=== PATIENT | male | born 1930 | race Caucasian/White ===

== ENCOUNTER 2019-09-20 19:31 | Inpatient (IN) | payer MEDICARE ==
[~2019-09-20] VITALS: Ht 175.3 cm; Wt 60.4 kg
[2019-09-20 20:11] LABS: BASO % 1 % (0-3); EOS # 0.2 x10^3/uL (0.0-0.7); EOS % 3 % (0-3); HEMATOCRIT 26.7 % (39.0-53.0); HEMOGLOBIN 9.2 g/dL (13.0-17.5); LYMPH # 1.5 x10^3/uL (1.0-4.8); LYMPH % 19 % (24-48); MEAN CORPUSCULAR HEMOGLOBIN 30 pg (25-35); MEAN CORPUSCULAR HGB CONC 34 g/dL (31-37); MEAN CORPUSCULAR VOLUME 88 fL (79-100); MONO # 0.4 x10^3/uL (0.0-1.1); MONO % 6 % (0-9); NEUT # 5.7 x10^3/uL (1.8-7.7); NEUT % 72 % (31-73); PLATELET COUNT 200 x10^3/uL (140-400); RED BLOOD COUNT 3.04 x10^6/uL (4.30-5.70); RED CELL DISTRIBUTION WIDTH 15.4 % (11.5-14.5); WHITE BLOOD COUNT 7.8 x10^3/uL (4.0-11.0)
[2019-09-20 20:20] LABS: CALCIUM 8.6 mg/dL (8.5-10.1); CREATININE 5.9 mg/dL (0.7-1.3); GFR 9.1; POTASSIUM 5.5 mmol/L (3.5-5.1)
[2019-09-20 20:26] LABS: ALBUMIN 4.1 g/dL (3.4-5.0); ALBUMIN/GLOBULIN RATIO 1.5 (1.0-1.7); TOTAL BILIRUBIN 0.3 mg/dL (0.2-1.0); TOTAL PROTEIN 6.9 g/dL (6.4-8.2)
--- NOTE | 2019-09-20 20:42 | PHYS DOC ---
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 Patient states that he had blood work done yesterday and that his PCP Dr. Ballard called him today to come into the ER immediately for admission. Patient was told that his kidney labs were abnormal. Patient states that he has bilateral lower extremity edema for the last 1 month. Patient states that he has had generalized weakness for the last 1 month. Patient denies being an active smoker. Patient denies a history of diabetes, high blood pressure, high cholesterol. Patient denies chest pain, fever, chills, nausea or vomiting. Review of Systems: Review of Systems: Constitutional: Denies fever or chills. [] Eyes: Denies change in visual acuity. [] HENT: Denies nasal congestion or sore throat. [] Respiratory: Denies cough or shortness of breath. [] Cardiovascular: Denies chest pain or edema. [] GI: Denies abdominal pain, nausea, vomiting or diarrhea. [] : Denies dysuria. [] Musculoskeletal: Complains of bilateral lower extremity edema [] Neurologic: Complains of generalized weakness [] Heart Score: Risk Factors: Risk Factors: DM, Current or recent (<one month) smoker, HTN, HLP, family history of CAD, obesity. Risk Scores: Score 0 - 3: 2.5% MACE over next 6 weeks - Discharge Home Score 4 - 6: 20.3% MACE over next 6 weeks - Admit for Clinical Observation Score 7 - 10: 72.7% MACE over next 6 weeks - Early Invasive Strategies Allergies: Allergies: Allergies Coded Allergies Type Severity Reaction Last Updated Verified No Known Drug Allergies 09/20/19 No Physical Exam: PE: Constitutional: Well developed, well nourished, no acute distress, non-toxic appearance. [] HENT: Normocephalic, atraumatic Eyes: EOMI Neck: Normal range of motion, Supple Cardiovascular:Heart rate regular rhythm Lungs & Thorax: Bilateral breath sounds clear to auscultation [] Abdomen: Bowel sounds normal, soft, no tenderness Extremities: No tenderness, ROM intact, bilateral +2 lower extremity edema Neurologic: Alert and oriented X 3 Current Patient Data: Labs: Laboratory Tests Test 09/20/19 19:56 White Blood Count 7.8 x10^3/uL (4.0-11.0) Red Blood Count 3.04 x10^6/uL (4.30-5.70) L Hemoglobin 9.2 g/dL (13.0-17.5) L Hematocrit 26.7 % (39.0-53.0) L Mean Corpuscular Volume 88 fL (79-100) Mean Corpuscular Hemoglobin 30 pg (25-35) Mean Corpuscular Hemoglobin Concent 34 g/dL (31-37) Red Cell Distribution Width 15.4 % (11.5-14.5) H Platelet Count 200 x10^3/uL (140-400) Neutrophils (%) (Auto) 72 % (31-73) Lymphocytes (%) (Auto) 19 % (24-48) L Monocytes (%) (Auto) 6 % (0-9) Eosinophils (%) (Auto) 3 % (0-3) Basophils (%) (Auto) 1 % (0-3) Neutrophils # (Auto) 5.7 x10^3/uL (1.8-7.7) Lymphocytes # (Auto) 1.5 x10^3/uL (1.0-4.8) Monocytes # (Auto) 0.4 x10^3/uL (0.0-1.1) Eosinophils # (Auto) 0.2 x10^3/uL (0.0-0.7) Basophils # (Auto) 0.0 x10^3/uL (0.0-0.2) Sodium Level 142 mmol/L (136-145) Potassium Level 5.5 mmol/L (3.5-5.1) H Chloride Level 107 mmol/L (98-107) Carbon Dioxide Level 23 mmol/L (21-32) Anion Gap 12 (6-14) Blood Urea Nitrogen 79 mg/dL (8-26) H Creatinine 5.9 mg/dL (0.7-1.3) H Estimated GFR (Cockcroft-Gault) 9.1 BUN/Creatinine Ratio 13 (6-20) Glucose Level 125 mg/dL (70-99) H Calcium Level 8.6 mg/dL (8.5-10.1) Total Bilirubin 0.3 mg/dL (0.2-1.0) Aspartate Amino Transferase (AST) 14 U/L (15-37) L Alanine Aminotransferase (ALT) 18 U/L (16-63) Alkaline Phosphatase 59 U/L (46-116) Troponin I Quantitative < 0.017 ng/mL (0.000-0.055) DI-Kqd-C-Type Natriuretic Peptide 7542 pg/mL (0-449) H Total Protein 6.9 g/dL (6.4-8.2) Albumin 4.1 g/dL (3.4-5.0) Albumin/Globulin Ratio 1.5 (1.0-1.7) Laboratory Tests 09/20/19 19:56 Laboratory Tests 09/20/19 19:56 Vital Signs: Vital Signs Date Time Temp Pulse Resp B/P (MAP) Pulse Ox O2 Delivery O2 Flow Rate FiO2 09/20/19 19:42 97.9 16 188/83 (118) 99 Room Air 97.9 EKG: EKG: EKG interpretation: 19: 58 on 09/20/2019 HR: 71 Sinus rhythm Leftward axis Regular intervals nonspecific ST changes Radiology/Procedures: Radiology/Procedures: [] Impression: CXR IMPRESSION: Mild ill-defined right basilar opacities, possibly an infectious/inflammatory process. Course & Med Decision Making: Course & Med Decision Making Pertinent Labs and Imaging studies reviewed. (See chart for details) Order labs, UA, chest x-ray Patient's hemoglobin is 9.2. Patient's creatinine is 5.9. BNP is elevated at 7540. Patient's potassium is 5.5. EKG does not show any acute changes. Chest x-ray does not show any acute disease. IV fluids started in the ED. We will discuss case with Dr. Ballard for admission. Discussed results and plan of care with patient. At 8:55 PM I discussed case with Dr. Ballard who accepts admission. He is aware of chest x-ray but does not want any treatment currently. States that he will follow-up tomorrow. He also wants me to discuss case with nephrology for possible dialysis. Here is that patient be put on D5 normal saline at 100 cc an hour. He states that patient's creatinine in May was 2.6 and he was supposed to follow-up with nephrology but patient never followed up. Also discussed case with nephrology on-call Dr. Rock. Nephrology will see him tomorrow morning. [place] Disclaimer: [place] Disclaimer: This electronic medical record was generated, in whole or in part, using a voice recognition dictation system. Departure Departure Impression: Primary Impression: CHAN (acute kidney injury) Additional Impression: Hyperkalemia Disposition: ADMITTED INPATIENT Admitting Physician: Gilberto Ballard Condition: GUARDED Referrals: GILBERTO BALLARD MD (PCP) Justicifation of Admission Dx: Justifications for Admission: Justification of Admission Dx: Yes CHF: Sev. Electrolyte Abnormal Acute Renal Failure: 3-Fold Rise in Serum Crea GREG BERMUDEZ DO Sep 20, 2019 20:42
[2019-09-20] MEDS ORDERED: AMIT10TA PO (20:44)
[2019-09-20] MEDS ORDERED: IV NORMAL SALINE 1000ML BAG 1,000 ML IV ONE (20:45)
--- NOTE | 2019-09-20 20:48 | RAD ---
CHEST PA LATERAL INDICATION: Reason: cough / Spl. Instructions: / History: . COMPARISON STUDY: None. FINDINGS: Lungs: Normal lung volume. Mild ill-defined right basilar opacities. The tracheobronchial tree and hilar structures are normal. Pleura: No pleural effusion or pneumothorax. Heart and Mediastinum: Cardiomegaly. Tortuous atherosclerotic aorta. Bones and Soft Tissues: Degenerative changes of the spine. IMPRESSION: Mild ill-defined right basilar opacities, possibly an infectious/inflammatory process. Electronically signed by: Nas Suazo MD (09/20/2019 8:45 PM) [facility] HOSPITALFlorinda
[2019-09-20 21:15] LABS: BILIRUBIN,URINE NEGATIVE (NEG); CLARITY,URINE CLEAR; COLOR,URINE YELLOW; NITRITE,URINE NEGATIVE (NEG); PH,URINE 6.5 (<5.0-8.0); PROTEIN,URINE NEGATIVE (NEG-TRACE); UROBILINOGEN,URINE 0.2 mg/dL (0.2 mg/dL)
[2019-09-20 21:19] LABS: SQUAMOUS EPITHELIAL CELL,UR OCC /LPF
[2019-09-20 21:20] LABS: BACTERIA,URINE 0 /HPF (0-FEW); RBC,URINE RARE /HPF (0-2); WBC,URINE OCC /HPF (0-4)
[2019-09-20] MEDS ORDERED: IV DEXTROSE 5% - 0.9 % NACL 1,000 ML IV ONE (21:30)
[2019-09-20 22:30] VITALS: BP 179/65
[2019-09-21 02:31] VITALS: BP 167/70
[2019-09-21] MEDS ORDERED: AMLO10TA4 PO (02:42)
[2019-09-21] MEDS ORDERED: FURO40TA4 PO (02:42)
--- NOTE | 2019-09-21 06:35 | EKG ---
[facility] [address] [place] [address] Test Date: 2019-09-20 Test Time: 19:58:13 Pat Name: QUINN FOSTER Department: Room: 211 1 Gender: M Electrocardiograph Operator: : [id number] Requested By: GREG BERMUDEZ Order Number: [id number] Reading MD: Augustus Sawant MD Measurements Intervals [place] Rate: 71 P: 28 MS: 206 QRS: -14 QRSD: 94 T: 63 QT: 374 QTc: 407 Interpretive Statements SINUS RHYTHM Electronically Signed On 09-27-2019 10:11:24 CDT by Augustus Sawant MD
[2019-09-21 07:00] VITALS: BP 169/83
--- NOTE | 2019-09-21 08:53 | PDOC ---
Provider Note Provider Note dictated, folley NOT placed yet as requested of er doc- may have retention fron amitryptalinel, ordered Justicifation of Admission Dx: Justifications for Admission: Justification of Admission Dx: Yes Acute Renal Failure: Anuria GILBERTO BALLARD MD Sep 21, 2019 08:53
--- NOTE | 2019-09-21 09:15 | HP ---
ADMIT DATE: CHIEF COMPLAINT: Acute renal failure. HISTORY OF PRESENT ILLNESS: This 88-year-old white male known to have some degree of CKD. Three months ago, his GFR was around 25, creatinine 1.2 and renal consult was made, but was never obtained for reasons that are unclear. Recent labs showed his creatinine was 6.0, potassium 5.7 and he was contacted by phone and decided to come to [facility]. Redd catheter was ordered to be placed. This has not been placed yet at this point. The patient is a poor historian at this time. HOME MEDICATIONS: Include furosemide, amitriptyline and amlodipine, none of which are new. ALLERGIES: No known allergies. SOCIAL HISTORY: Unremarkable, single, has a son who lives in the area. FAMILY HISTORY: Unremarkable. REVIEW OF SYSTEMS: No other known complaints. He is not able to really quantitate his urine output or any issues with straining. OBJECTIVE: ENT: He has mild pallor, although his mouth is dry, otherwise unremarkable. NECK: No bruits, masses or nodes. LUNGS: Clear. CARDIOVASCULAR: Regular rate. No tachycardia or irregular beat. ABDOMEN: Benign and nontender. No palpable bladder is felt, but guarding is present in the lower abdomen. EXTREMITIES: He has 3+ pretibial edema bilaterally. Pedal pulses are adequate. NEUROLOGIC: Physiologic and nonfocal. ASSESSMENT: Chronic kidney disease that has progressed to acute renal failure with hyperkalemia. He also is anemic, likely from chronic kidney disease. May have vasomotor nephropathy, but may also have urinary retention, aggravated by amitriptyline. PLAN: Redd catheter, IV fluid rehydration, renal consultation as he likely will require acute hemodialysis unless he has got obstruction and hydronephrosis. GILBERTO BALLARD MD DR: MACARIO/madison JOB#: [id number] / [id number]
[2019-09-21 09:49] LABS: CALCIUM 8.3 mg/dL (8.5-10.1); CREATININE 5.7 mg/dL (0.7-1.3); GFR 9.5; POTASSIUM 4.9 mmol/L (3.5-5.1)
--- NOTE | 2019-09-21 09:51 | PDOC2 ---
CONSULT Date of Consult Date of Consult DATE: 09/21/19 TIME: 09:33 Reason for Consult Reason for Consult: CHAN on CKD Identification/Chief Complaint Chief Complaint "Im feeling better" Source Source: Chart review History of Present Illness Reason for Visit: Poor Historian, information from PCP's note Pt is a 88-year-old CM follows with Dr. Grubbs - he has baseline CKD per PCP's note and baseline Cr of 1.2 3 months ago with eGFR of 25 He was found to have abnormal labs with Cr of 6.0 , K 5.7 and was advised to come to ER . His UOP has been minimal . he doesnt have da silva . He denies any CP, SOB. No N/V/D. Per Home med list he is been on furosemide, amitriptyline and amlodipine, none of which are new per PCP Past Medical History Past Medical History Not mentioned in PCP's Note Unable to obtain from Pt. Based on Med list- HTN, CKD Family History Family History Unremarkable. Social History Social History Unremarkable, single, has a son who lives in the area. Current Problem List Problem List Problems Medical Problems: (1) CHAN (acute kidney injury) Status: Acute (2) Hyperkalemia Status: Acute Current Medications Current Medications Current Medications Sodium Chloride 1,000 ml @ 1,000 mls/hr 1X ONCE IV Last administered on 09/20/19at 20:45; Start 09/20/19 at 20:45; Stop 09/20/19 at 21:44; Status DC Dextrose/Sodium Chloride 1,000 ml @ 100 mls/hr 1X ONCE IV Last administered on 09/21/19at 05:39; Start 09/20/19 at 21:30; Stop 09/21/19 at 07:29; Status DC Amlodipine Besylate (Norvasc) 10 mg DAILY PO ; Start 09/21/19 at 09:00 Dextrose/Sodium Chloride 1,000 ml @ 100 mls/hr Q10H IV ; Start 09/21/19 at 08:45 Active Scripts Active Reported Furosemide 40 Mg Tablet 40 Mg PO DAILY Norvasc (Amlodipine Besylate) 10 Mg Tablet 10 Mg PO DAILY Amitriptyline Hcl 10 Mg Tablet 50 Mg PO HS Allergies Allergies: Coded Allergies: No Known Drug Allergies (Unverified , 09/20/19) ROS Review of System Per HPI, Rosa Historian Physical Exam Physical Exam GENERAL- NAD HEEN OM dry NECK: supple LUNGS: Clear, Non labored breathing CARDIOVASCULAR: Regular rate. No tachycardia or irregular beat. ABDOMEN: nontender. EXTREMITIES: 2-+ LE edema bilaterally (Unknown if acute or chronic) NEUROLOGIC: Grossly normal No da silva DERM No Rash Vital Signs Vital Signs Date Time Temp Pulse Resp B/P (MAP) Pulse Ox O2 Delivery O2 Flow Rate FiO2 09/21/19 07:00 97.7 69 16 169/83 (111) 97 Room Air 97.7 Assessment & Plan CHAN - Dehydration vs Post obstructive No imaging at presentation, will get Renal US , UA unremarkable Labs ordered , pending . clinically no Uremic symptoms, decision for HOME PERFORMANCE CONSULTANT will be based on Labs and clinical status Recommend Da Silva , Supportive care, Strict I/O, avoid Nephrotoxins' HyperKalemia- ordered FU lab this am CKD stage 4 - per PCP's note Cr 1.25 with eGFR of 25 approx 3 months ago Anemia- baseline unknown to me HTN - On amlodipine and Lasix per home med list ? BPH - was on Flomax in the past Discussed with RN Labs Labs Laboratory Tests Test 09/20/19 19:56 09/20/19 21:09 White Blood Count 7.8 x10^3/uL (4.0-11.0) Red Blood Count 3.04 x10^6/uL (4.30-5.70) Hemoglobin 9.2 g/dL (13.0-17.5) Hematocrit 26.7 % (39.0-53.0) Mean Corpuscular Volume 88 fL (79-100) Mean Corpuscular Hemoglobin 30 pg (25-35) Mean Corpuscular Hemoglobin Concent 34 g/dL (31-37) Red Cell Distribution Width 15.4 % (11.5-14.5) Platelet Count 200 x10^3/uL (140-400) Neutrophils (%) (Auto) 72 % (31-73) Lymphocytes (%) (Auto) 19 % (24-48) Monocytes (%) (Auto) 6 % (0-9) Eosinophils (%) (Auto) 3 % (0-3) Basophils (%) (Auto) 1 % (0-3) Neutrophils # (Auto) 5.7 x10^3/uL (1.8-7.7) Lymphocytes # (Auto) 1.5 x10^3/uL (1.0-4.8) Monocytes # (Auto) 0.4 x10^3/uL (0.0-1.1) Eosinophils # (Auto) 0.2 x10^3/uL (0.0-0.7) Basophils # (Auto) 0.0 x10^3/uL (0.0-0.2) Sodium Level 142 mmol/L (136-145) Potassium Level 5.5 mmol/L (3.5-5.1) Chloride Level 107 mmol/L (98-107) Carbon Dioxide Level 23 mmol/L (21-32) Anion Gap 12 (6-14) Blood Urea Nitrogen 79 mg/dL (8-26) Creatinine 5.9 mg/dL (0.7-1.3) Estimated GFR (Cockcroft-Gault) 9.1 BUN/Creatinine Ratio 13 (6-20) Glucose Level 125 mg/dL (70-99) Calcium Level 8.6 mg/dL (8.5-10.1) Total Bilirubin 0.3 mg/dL (0.2-1.0) Aspartate Amino Transf (AST/SGOT) 14 U/L (15-37) Alanine Aminotransferase (ALT/SGPT) 18 U/L (16-63) Alkaline Phosphatase 59 U/L (46-116) Troponin I Quantitative < 0.017 ng/mL (0.000-0.055) ZD-Mvw-F-Type Natriuretic Peptide 7542 pg/mL (0-449) Total Protein 6.9 g/dL (6.4-8.2) Albumin 4.1 g/dL (3.4-5.0) Albumin/Globulin Ratio 1.5 (1.0-1.7) Urine Collection Type Unknown Urine Color Yellow Urine Clarity Clear Urine pH 6.5 (<5.0-8.0) Urine Specific [place] 1.010 (1.000-1.030) Urine Protein Negative mg/dL (NEG-TRACE) Urine Glucose (UA) Negative mg/dL (NEG) Urine Ketones (Stick) Negative mg/dL (NEG) Urine Blood Negative (NEG) Urine Nitrite Negative (NEG) Urine Bilirubin Negative (NEG) Urine Urobilinogen Dipstick 0.2 mg/dL (0.2 mg/dL) Urine Leukocyte Esterase Negative (NEG) Urine RBC Rare /HPF (0-2) Urine WBC Occ /HPF (0-4) Urine Squamous Epithelial Cells Occ /LPF Urine Bacteria 0 /HPF (0-FEW) Urine Mucus Slight /LPF Laboratory Tests Test 09/20/19 19:56 09/20/19 21:09 White Blood Count 7.8 x10^3/uL (4.0-11.0) Red Blood Count 3.04 x10^6/uL (4.30-5.70) Hemoglobin 9.2 g/dL (13.0-17.5) Hematocrit 26.7 % (39.0-53.0) Mean Corpuscular Volume 88 fL (79-100) Mean Corpuscular Hemoglobin 30 pg (25-35) Mean Corpuscular Hemoglobin Concent 34 g/dL (31-37) Red Cell Distribution Width 15.4 % (11.5-14.5) Platelet Count 200 x10^3/uL (140-400) Neutrophils (%) (Auto) 72 % (31-73) Lymphocytes (%) (Auto) 19 % (24-48) Monocytes (%) (Auto) 6 % (0-9) Eosinophils (%) (Auto) 3 % (0-3) Basophils (%) (Auto) 1 % (0-3) Neutrophils # (Auto) 5.7 x10^3/uL (1.8-7.7) Lymphocytes # (Auto) 1.5 x10^3/uL (1.0-4.8) Monocytes # (Auto) 0.4 x10^3/uL (0.0-1.1) Eosinophils # (Auto) 0.2 x10^3/uL (0.0-0.7) Basophils # (Auto) 0.0 x10^3/uL (0.0-0.2) Sodium Level 142 mmol/L (136-145) Potassium Level 5.5 mmol/L (3.5-5.1) Chloride Level 107 mmol/L (98-107) Carbon Dioxide Level 23 mmol/L (21-32) Anion Gap 12 (6-14) Blood Urea Nitrogen 79 mg/dL (8-26) Creatinine 5.9 mg/dL (0.7-1.3) Estimated GFR (Cockcroft-Gault) 9.1 BUN/Creatinine Ratio 13 (6-20) Glucose Level 125 mg/dL (70-99) Calcium Level 8.6 mg/dL (8.5-10.1) Total Bilirubin 0.3 mg/dL (0.2-1.0) Aspartate Amino Transf (AST/SGOT) 14 U/L (15-37) Alanine Aminotransferase (ALT/SGPT) 18 U/L (16-63) Alkaline Phosphatase 59 U/L (46-116) Troponin I Quantitative < 0.017 ng/mL (0.000-0.055) IH-Xmt-L-Type Natriuretic Peptide 7542 pg/mL (0-449) Total Protein 6.9 g/dL (6.4-8.2) Albumin 4.1 g/dL (3.4-5.0) Albumin/Globulin Ratio 1.5 (1.0-1.7) Urine Collection Type Unknown Urine Color Yellow Urine Clarity Clear Urine pH 6.5 (<5.0-8.0) Urine Specific [place] 1.010 (1.000-1.030) Urine Protein Negative mg/dL (NEG-TRACE) Urine Glucose (UA) Negative mg/dL (NEG) Urine Ketones (Stick) Negative mg/dL (NEG) Urine Blood Negative (NEG) Urine Nitrite Negative (NEG) Urine Bilirubin Negative (NEG) Urine Urobilinogen Dipstick 0.2 mg/dL (0.2 mg/dL) Urine Leukocyte Esterase Negative (NEG) Urine RBC Rare /HPF (0-2) Urine WBC Occ /HPF (0-4) Urine Squamous Epithelial Cells Occ /LPF Urine Bacteria 0 /HPF (0-FEW) Urine Mucus Slight /LPF Review All relevant outside records, renal labs, imaging studies, telemetry/EKG's were reviewed. Images Images Mild ill-defined right basilar opacities, possibly an infectious/inflammatory process. GEORGIE MELGOZA MD Sep 21, 2019 09:51
[2019-09-21 09:52] LABS: ALBUMIN 3.7 g/dL (3.4-5.0); PHOSPHORUS 4.7 mg/dL (2.6-4.7)
[2019-09-21 11:00] VITALS: BP 155/77
[2019-09-21] MEDS: amLODIPine BESYLATE 10 MG TABLET PO SCH (11:48)
[2019-09-21] MEDS: IV DEXTROSE 5 %-0.45 % NACL 1,000 ML IV SCH ×2 (11:48→22:04)
--- NOTE | 2019-09-21 13:00 | RAD ---
RENAL COMPLETE BILATERAL History: Reason: CHAN on CKD / Spl. Instructions: / History: Comparison: None. Procedure: Transabdominal ultrasound images are obtained of the kidneys and bladder. Findings: Multicystic kidneys bilaterally. Largest cyst on the right measures 9.2 x 9.1 x 8.6 cm and largest on the left measures 9.5 x 8.0 x 8.3 cm. No definite hydronephrosis although evaluation is degraded by large cysts. Severely distended urinary bladder. Urinary bladder: No urinary bladder wall thickening. The IVC is normal caliber. The visualized abdominal aorta is normal caliber. IMPRESSION: 1. Severely distended urinary bladder. 2. Multiple large cysts within the bilateral kidneys degrading evaluation. Electronically signed by: Michael Duffy DO (09/21/2019 12:57 PM) [facility]ENTERPORSCHE
[2019-09-21 14:39] VITALS: BP 147/77
[2019-09-21 23:45] VITALS: BP 147/72
[2019-09-22 03:40] VITALS: BP 149/75
[2019-09-22] MEDS ORDERED: ACETAMINOPHEN 325 MG TABLET. PO PRN (05:00)
[2019-09-22] MEDS: IV DEXTROSE 5 %-0.45 % NACL 1,000 ML IV SCH ×2 (05:13→15:16)
[2019-09-22 05:51] LABS: CALCIUM 8.2 mg/dL (8.5-10.1); CREATININE 5.5 mg/dL (0.7-1.3); GFR 9.9; POTASSIUM 4.4 mmol/L (3.5-5.1)
[2019-09-22 07:00] VITALS: BP 154/71
[2019-09-22] MEDS: amLODIPine BESYLATE 10 MG TABLET PO SCH (08:04)
--- NOTE | 2019-09-22 09:06 | PDOC ---
Provider Note Provider Note bp ok, had > 3000 ml in bladder after da silva placed- bmp same so far, had no hydro on renal sono- re murmur and edema will do echo, continue hydration as bladder recovers- was on amitryptaline x years as likely culprit re retension- sleeping now, K+ better , follow daily Justicifation of Admission Dx: Justifications for Admission: Justification of Admission Dx: Yes Acute Renal Failure: Anuria GILBERTO BALLARD MD Sep 22, 2019 09:06
[2019-09-22 10:24] VITALS: BP 134/56
--- NOTE | 2019-09-22 11:45 | PDOC ---
Renal-Progress Notes Subjective Notes Notes NO NEW COMPLAINTS History of Present Illness Hx of present illness STABLE Vitals Vitals Vital Signs Date Time Temp Pulse Resp B/P (MAP) Pulse Ox O2 Delivery O2 Flow Rate FiO2 09/22/19 10:24 98.2 60 16 134/56 (82) 97 Room Air 98.2 Weight Weight [ ] I.O. Intake and Output Intake and Output 09/22/19 07:00 Intake Total 1820 ml Output Total 7200 ml Balance -5380 ml Intake Oral 620 ml IV Total 1200 ml Output Urine Total 7200 ml Stool Total 0 ml # Bowel Movements 1 Labs Labs Laboratory Tests Test 09/22/19 05:15 Sodium Level 145 mmol/L (136-145) Potassium Level 4.4 mmol/L (3.5-5.1) Chloride Level 110 mmol/L (98-107) Carbon Dioxide Level 24 mmol/L (21-32) Anion Gap 11 (6-14) Blood Urea Nitrogen 70 mg/dL (8-26) Creatinine 5.5 mg/dL (0.7-1.3) Estimated GFR (Cockcroft-Gault) 9.9 Glucose Level 110 mg/dL (70-99) Calcium Level 8.2 mg/dL (8.5-10.1) Review of Systems Constitutional: yes: alert Ears/Nose/Throat: Yes: no symptom reported Eyes: Yes: no symptom reported Pulmonary: Yes no symptom reported Cardiovascular: Yes no symptom reported Gastrointestional: Yes: no symptom reported Genitourinary: Yes: no symptom reported Musculoskeletal: Yes: no symptom reported Skin: Yes no symptom reported Psychiatric/Neurological: Yes: no symptom reported Endocrine: Yes: no symptom reported Physical Exam General Appearance: no apparent distress Skin: warm Respiratory: bilateral CTA Heart: S1S2 Abdomen: soft, bowel sounds present Genitourinary: bladder flat Extremities: pulses present Neurology: alert, oriented Assessment Assessment IMP [id number] DOWN TO 5.5 URINARY RETENTION PROB BPH POSSIBLE CKD-STAGE 3 TO 4 WITH CR OF 1.25 HYPERKALEMIA RESOLVED HTN HX ANEMIA PLAN HYDRATE MAINTAIN DAWN CONSIDER FLOMAX WILL FOLLOW JENNY WAGONER MD Sep 22, 2019 11:45
[2019-09-22 14:53] VITALS: BP 164/90
[2019-09-22 19:52] VITALS: BP 152/62
[2019-09-22] MEDS: TAMSULOSIN 0.4 MG CAP.ER.24H. PO SCH (20:01)
[2019-09-22 23:20] VITALS: BP 149/72
[2019-09-23] MEDS: IV DEXTROSE 5 %-0.45 % NACL 1,000 ML IV SCH ×3 (01:39→21:23)
[2019-09-23 03:20] VITALS: BP 125/54
[2019-09-23 04:34] LABS: CALCIUM 6.9 mg/dL (8.5-10.1); CREATININE 4.3 mg/dL (0.7-1.3); GFR 13.1; POTASSIUM 3.8 mmol/L (3.5-5.1)
[2019-09-23 07:00] VITALS: BP 130/67
[2019-09-23] MEDS: amLODIPine BESYLATE 10 MG TABLET PO SCH (08:22)
--- NOTE | 2019-09-23 09:31 | PDOC ---
Provider Note Provider Note vss, good output- feels ok- creat down to 4.5 , glucose 386? but no hx of dm- will continue hydration re arf, da silva, and do a1c- echo pending, will dc monitor- note edema is gone Justicifation of Admission Dx: Justifications for Admission: Justification of Admission Dx: Yes Acute Renal Failure: Anuria GILBERTO BALLARD MD Sep 23, 2019 09:31
[2019-09-23 11:00] VITALS: BP 133/56
--- NOTE | 2019-09-23 12:05 | PDOC ---
Renal-Progress Notes Subjective Notes Notes FEELING BETTER History of Present Illness Hx of present illness STABLE Vitals Vitals Vital Signs Date Time Temp Pulse Resp B/P (MAP) Pulse Ox O2 Delivery O2 Flow Rate FiO2 09/23/19 11:00 98.1 60 16 133/56 (81) 97 Room Air 98.1 Weight Weight [ ] I.O. Intake and Output Intake and Output 09/23/19 07:00 Intake Total 1758 ml Output Total 4800 ml Balance -3042 ml Intake Oral 758 ml IV Total 1000 ml Output Urine Total 4800 ml Labs Labs Laboratory Tests Test 09/23/19 03:55 Sodium Level 139 mmol/L (136-145) Potassium Level 3.8 mmol/L (3.5-5.1) Chloride Level 105 mmol/L (98-107) Carbon Dioxide Level 22 mmol/L (21-32) Anion Gap 12 (6-14) Blood Urea Nitrogen 59 mg/dL (8-26) Creatinine 4.3 mg/dL (0.7-1.3) Estimated GFR (Cockcroft-Gault) 13.1 Glucose Level 386 mg/dL (70-99) Calcium Level 6.9 mg/dL (8.5-10.1) Review of Systems Constitutional: yes: alert Ears/Nose/Throat: Yes: no symptom reported Eyes: Yes: no symptom reported Pulmonary: Yes no symptom reported Cardiovascular: Yes no symptom reported Gastrointestional: Yes: no symptom reported Genitourinary: Yes: no symptom reported Musculoskeletal: Yes: no symptom reported Skin: Yes no symptom reported Psychiatric/Neurological: Yes: no symptom reported Endocrine: Yes: no symptom reported Physical Exam General Appearance: no apparent distress Skin: warm Respiratory: bilateral CTA Heart: S1S2 Abdomen: soft, bowel sounds present Genitourinary: bladder flat Extremities: pulses present Neurology: alert, oriented Assessment Assessment IMP [id number] DOWN TO 4.3 URINARY RETENTION PROB BPH POSSIBLE CKD-STAGE 3 TO 4 WITH CR OF 1.25 HYPERKALEMIA RESOLVED HTN HX ANEMIA PLAN HYDRATE MAINTAIN DAWN FLOMAX WILL FOLLOW JENNY WAGONER MD Sep 23, 2019 12:05
[2019-09-23 15:00] VITALS: BP 149/59
[2019-09-23 19:00] VITALS: BP 144/69
[2019-09-23] MEDS: TAMSULOSIN 0.4 MG CAP.ER.24H. PO SCH (21:21)
[2019-09-23 23:00] VITALS: BP 156/80
[2019-09-23] MEDS ORDERED: CALCIUM CARBONATE 500 MG TAB.CHEW PO PRN (23:00)
[2019-09-24 03:00] VITALS: BP 132/70
[2019-09-24 05:57] LABS: CALCIUM 7.5 mg/dL (8.5-10.1); CREATININE 3.7 mg/dL (0.7-1.3); GFR 15.6; POTASSIUM 3.7 mmol/L (3.5-5.1)
[2019-09-24 07:05] VITALS: BP 138/58
[2019-09-24] MEDS: amLODIPine BESYLATE 10 MG TABLET PO SCH (08:17)
[2019-09-24] MEDS: IV DEXTROSE 5 %-0.45 % NACL 1,000 ML IV SCH ×2 (08:20→23:52)
--- NOTE | 2019-09-24 08:27 | PDOC ---
Provider Note Provider Note vss, no temp, creat down to 3.7- will reduce iv rate, repeat hb re anemia, consider voiding trial b4 dc as no urology readily available- continues to require hospital care Justicifation of Admission Dx: Justifications for Admission: Justification of Admission Dx: Yes Acute Renal Failure: Anuria GILBERTO BALLARD MD Sep 24, 2019 08:27
[2019-09-24 08:33] LABS: HEMATOCRIT 27.3 % (39.0-53.0); HEMOGLOBIN 9.1 g/dL (13.0-17.5); RED BLOOD COUNT 3.12 x10^6/uL (4.30-5.70); RED CELL DISTRIBUTION WIDTH 14.8 % (11.5-14.5); WHITE BLOOD COUNT 13.6 x10^3/uL (4.0-11.0)
--- NOTE | 2019-09-24 09:34 | CARD ---
MR#: [id number] Date of Study: 09/24/2019 Ordering Physician: GILBERTO BALLARD, Referring Physician: GILBERTO BALLARD Tech: Makenzie Mcpherson RDCS APPROVED REPORT EXAM: Two-dimensional and M-mode echocardiogram with Doppler and color Doppler. Other Information Quality : Good INDICATION Peripheral Edema Murmur 2D DIMENSIONS RVDd2.8 (2.9-3.5cm)Left Atrium(2D)3.5 (1.6-4.0cm) IVSd1.7 (0.7-1.1cm)Aortic Root(2D)2.6 (2.0-3.7cm) LVDd4.9 (3.9-5.9cm)LVOT Diameter2.1 (1.8-2.4cm) PWd1.4 (0.7-1.1cm)LVDs3.0 (2.5-4.0cm) FS (%) 30.0 %SV79.9 ml LVEF(%)60.0 (>50%) Aortic Valve AoV Peak Kirill.245.9cm/sAoV VTI39.7cm AO Peak GR.24.2mmHgLVOT Peak Kirill.124.1cm/s AO Mean GR.12mmHgAVA (VMAX)1.81cm2 MIGEL (VTI)2.54gy7MS P 1/2 Btad202md Mitral Valve MV E Zvfqpavo28.7cm/sMV DECEL RYAT904io MV A Kfkedezk94.7cm/sE/A Ratio0.6 Tricuspid Valve TR P. Kuekgxra168si/sRAP WBATRZCP3whCw TR Peak Gr.78xsJjSDIF54ewYt Pulmonary Vein S1 Nogiqnba14.9cm/sD2 Kubiudas36.5cm/s LEFT VENTRICLE The left ventricle is normal size. There is mild to moderate concentric left ventricular hypertrophy. The left ventricular systolic function is normal. The Ejection Fraction is 60-65%. There is normal L V segmental wall motion. Transmitral Doppler flow pattern is Grade I-abnormal relaxation pattern. RIGHT VENTRICLE The right ventricle is normal size. The right ventricular systolic function is normal. ATRIA The left atrium size is normal. The right atrium size is normal. Prominent eustacian valve visualized . The interatrial septum is intact with no evidence for an atrial septal defect or patent foramen ova le as noted on 2-D or Doppler imaging. AORTIC VALVE The aortic valve is calcified but opens well. Doppler and Color Flow revealed mild aortic regurgitati on. There is no significant aortic valvular stenosis. MITRAL VALVE The mitral valve is normal in structure and function. There is no evidence of mitral valve prolapse. There is no mitral valve stenosis. Doppler and Color-flow revealed mild mitral regurgitation. TRICUSPID VALVE The tricuspid valve is normal in structure and function. Doppler and Color Flow revealed trace tricus pid regurgitation. There is mild pulmonary hypertension. The PA pressure was estimated at 37 mmHg. Th ere is no tricuspid valve stenosis. PULMONIC VALVE The pulmonary valve is normal in structure and function. Doppler and Color Flow revealed mild pulmoni c valvular regurgitation. There is no pulmonic valvular stenosis. GREAT VESSELS The aortic root is normal in size. 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 The IVC is no rmal in size and collapses >50% with inspiration. PERICARDIAL EFFUSION There is no evidence of significant pericardial effusion. Critical Notification Critical Value: No <Conclusion> The left ventricular systolic function is normal. The Ejection Fraction is 60-65%. There is normal LV segmental wall motion. Transmitral Doppler flow pattern is Grade I-abnormal relaxation pattern. Mild aortic regurgitation. Mild mitral regurgitation. Trace tricuspid regurgitation. There is mild pulmonary hypertension. The PA pressure was estimated at 37 mmHg. There is no evidence of significant pericardial effusion. Signed by : Gera Hassan, Electronically Approved : 09/24/2019 09:33:57
[2019-09-24 10:32] VITALS: BP 121/52
--- NOTE | 2019-09-24 11:27 | PDOC ---
Renal-Progress Notes Subjective Notes Notes NO NEW COMPLAINTS History of Present Illness Hx of present illness STABLE Vitals Vitals Vital Signs Date Time Temp Pulse Resp B/P (MAP) Pulse Ox O2 Delivery O2 Flow Rate FiO2 09/24/19 10:32 98.5 55 17 121/52 (75) 96 Room Air 98.5 Weight Weight [ ] I.O. Intake and Output Intake and Output 09/24/19 07:00 Intake Total 380 ml Output Total 5175 ml Balance -4795 ml Intake Oral 380 ml Output Urine Total 5175 ml Labs Labs Laboratory Tests Test 09/24/19 05:30 White Blood Count 13.6 x10^3/uL (4.0-11.0) Red Blood Count 3.12 x10^6/uL (4.30-5.70) Hemoglobin 9.1 g/dL (13.0-17.5) Hematocrit 27.3 % (39.0-53.0) Mean Corpuscular Volume 88 fL (79-100) Mean Corpuscular Hemoglobin 29 pg (25-35) Mean Corpuscular Hemoglobin Concent 33 g/dL (31-37) Red Cell Distribution Width 14.8 % (11.5-14.5) Platelet Count 188 x10^3/uL (140-400) Sodium Level 143 mmol/L (136-145) Potassium Level 3.7 mmol/L (3.5-5.1) Chloride Level 108 mmol/L (98-107) Carbon Dioxide Level 21 mmol/L (21-32) Anion Gap 14 (6-14) Blood Urea Nitrogen 51 mg/dL (8-26) Creatinine 3.7 mg/dL (0.7-1.3) Estimated GFR (Cockcroft-Gault) 15.6 Glucose Level 118 mg/dL (70-99) Calcium Level 7.5 mg/dL (8.5-10.1) Review of Systems Constitutional: yes: alert Ears/Nose/Throat: Yes: no symptom reported Eyes: Yes: no symptom reported Pulmonary: Yes no symptom reported Cardiovascular: Yes no symptom reported Gastrointestional: Yes: no symptom reported Genitourinary: Yes: no symptom reported Musculoskeletal: Yes: no symptom reported Skin: Yes no symptom reported Psychiatric/Neurological: Yes: no symptom reported Endocrine: Yes: no symptom reported Physical Exam General Appearance: no apparent distress Skin: warm Respiratory: bilateral CTA Heart: S1S2 Abdomen: soft, bowel sounds present Genitourinary: bladder flat Extremities: pulses present Neurology: alert, oriented Assessment Assessment IMP [id number] DOWN TO 3.7 URINARY RETENTION 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
[2019-09-24 15:00] VITALS: BP 140/79
[2019-09-24 19:00] VITALS: BP 108/56
[2019-09-24] MEDS: TAMSULOSIN 0.4 MG CAP.ER.24H. PO SCH (21:23)
[2019-09-24 23:00] VITALS: BP 155/65
[2019-09-25] VITALS (7 sets, daily range): BP systolic 111–155; BP diastolic 50–72
[2019-09-25 00:07] LABS: HEMOGLOBIN A1C 5.7 % (4.8-5.6)
[2019-09-25] MEDS: amLODIPine BESYLATE 10 MG TABLET PO SCH (08:45)
--- NOTE | 2019-09-25 08:50 | PDOC ---
Provider Note Provider Note vss, good output,faailed voiding trial despite flomax so will need da silva at home until able to see urology and hope for bladder recovery over more time, off amitryptaline- cont iv fluid and renal folllow, may need snf Justicifation of Admission Dx: Justifications for Admission: Justification of Admission Dx: Yes Acute Renal Failure: Anuria GILBERTO BALLARD MD Sep 25, 2019 08:50
--- NOTE | 2019-09-25 11:39 | PDOC ---
Renal-Progress Notes Subjective Notes Notes NONE History of Present Illness Hx of present illness STABLE Vitals Vitals Vital Signs Date Time Temp Pulse Resp B/P (MAP) Pulse Ox O2 Delivery O2 Flow Rate FiO2 09/25/19 10:25 98.4 62 16 125/50 (75) 97 Room Air 98.4 Weight Weight [ ] I.O. Intake and Output Intake and Output 09/25/19 07:00 Intake Total 1760 ml Output Total 1600 ml Balance 160 ml Intake Oral 320 ml IV Total 720 ml Other 720 ml Output Urine Total 1600 ml # Voids 1 # Bowel Movements 2 Review of Systems Constitutional: yes: alert Ears/Nose/Throat: Yes: no symptom reported Eyes: Yes: no symptom reported Pulmonary: Yes no symptom reported Cardiovascular: Yes no symptom reported Gastrointestional: Yes: no symptom reported Genitourinary: Yes: no symptom reported Musculoskeletal: Yes: no symptom reported Skin: Yes no symptom reported Psychiatric/Neurological: Yes: no symptom reported Endocrine: Yes: no symptom reported Physical Exam General Appearance: no apparent distress Skin: warm Respiratory: bilateral CTA Heart: S1S2 Abdomen: soft, bowel sounds present Genitourinary: bladder flat Extremities: pulses present Neurology: alert, oriented Assessment Assessment IMP [id number] DOWN TO 3.7 URINARY RETENTION PROB BPH 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
[2019-09-25] MEDS: IV DEXTROSE 5 %-0.45 % NACL 1,000 ML IV SCH (15:29)
[2019-09-25] MEDS: TAMSULOSIN 0.4 MG CAP.ER.24H. PO SCH (21:32)
[2019-09-26 03:00] VITALS: BP 113/60
[2019-09-26 05:24] LABS: CALCIUM 7.7 mg/dL (8.5-10.1); CREATININE 3.4 mg/dL (0.7-1.3); GFR 17.2; POTASSIUM 3.6 mmol/L (3.5-5.1)
[2019-09-26 07:00] VITALS: BP 126/74
--- NOTE | 2019-09-26 08:07 | PDOC ---
Provider Note Provider Note bp lower, still good output- creat slowly down, now 3.4- cont slow iv fluid, reduce amlo., placement likely Justicifation of Admission Dx: Justifications for Admission: Justification of Admission Dx: Yes Acute Renal Failure: Anuria GILBERTO BALLARD MD Sep 26, 2019 08:07
[2019-09-26] MEDS: amLODIPine BESYLATE 10 MG TABLET PO SCH (09:22)
[2019-09-26] MEDS: IV DEXTROSE 5 %-0.45 % NACL 1,000 ML IV SCH (09:23)
[2019-09-26 11:00] VITALS: BP 135/62
--- NOTE | 2019-09-26 11:53 | PDOC ---
Renal-Progress Notes Subjective Notes Notes NO NEW COMPLAINTS History of Present Illness Hx of present illness STABLE Vitals Vitals Vital Signs Date Time Temp Pulse Resp B/P (MAP) Pulse Ox O2 Delivery O2 Flow Rate FiO2 09/26/19 11:00 97.8 57 17 135/62 (86) 98 Room Air 97.8 Weight Weight [ ] I.O. Intake and Output Intake and Output 09/26/19 07:00 Intake Total 3110 ml Output Total 3100 ml Balance 10 ml Intake Oral 1670 ml IV Total 720 ml Other 720 ml Output Urine Total 3100 ml Labs Labs Laboratory Tests Test 09/26/19 04:00 Sodium Level 142 mmol/L (136-145) Potassium Level 3.6 mmol/L (3.5-5.1) Chloride Level 107 mmol/L (98-107) Carbon Dioxide Level 21 mmol/L (21-32) Anion Gap 14 (6-14) Blood Urea Nitrogen 51 mg/dL (8-26) Creatinine 3.4 mg/dL (0.7-1.3) Estimated GFR (Cockcroft-Gault) 17.2 Glucose Level 112 mg/dL (70-99) Calcium Level 7.7 mg/dL (8.5-10.1) Review of Systems Constitutional: yes: alert Ears/Nose/Throat: Yes: no symptom reported Eyes: Yes: no symptom reported Pulmonary: Yes no symptom reported Cardiovascular: Yes no symptom reported Gastrointestional: Yes: no symptom reported Genitourinary: Yes: no symptom reported Musculoskeletal: Yes: no symptom reported Skin: Yes no symptom reported Psychiatric/Neurological: Yes: no symptom reported Endocrine: Yes: no symptom reported Physical Exam General Appearance: no apparent distress Skin: warm Respiratory: bilateral CTA Heart: S1S2 Abdomen: soft, bowel sounds present Genitourinary: bladder flat Extremities: pulses present Neurology: alert, oriented Assessment Assessment IMP [id number] DOWN TO 3.4 URINARY RETENTION PROB BPH 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
[2019-09-26 15:00] VITALS: BP 109/69
[2019-09-26 19:11] VITALS: BP 131/57
[2019-09-26] MEDS: TAMSULOSIN 0.4 MG CAP.ER.24H. PO SCH (20:43)
[2019-09-26 23:46] VITALS: BP 132/58
[2019-09-27] MEDS: IV DEXTROSE 5 %-0.45 % NACL 1,000 ML IV SCH (01:06)
[2019-09-27 02:31] VITALS: BP 128/66
[2019-09-27 05:43] LABS: CALCIUM 7.5 mg/dL (8.5-10.1); CREATININE 3.1 mg/dL (0.7-1.3); GFR 19.2; POTASSIUM 3.8 mmol/L (3.5-5.1)
[2019-09-27 07:54] VITALS: BP 132/56
--- NOTE | 2019-09-27 08:15 | PDOC ---
Provider Note Provider Note slow but steady renal recovery, no temp , bp better on less amlo- will cont iv fluid until dc to snf, any time ok, da silva stays in for now- final gfr pending, was gfr 50 in 06/07 Justicifation of Admission Dx: Justifications for Admission: Justification of Admission Dx: Yes Acute Renal Failure: Anuria GILBERTO BALLARD MD Sep 27, 2019 08:15
--- NOTE | 2019-09-27 08:17 | SNU/HH DC ---
DISCHARGE ORDERS DISCHARGE INFORMATION: FINAL DIAGNOSIS Problems Medical Problems: (1) CHAN (acute kidney injury) Status: Acute (2) Hyperkalemia Status: Acute CONDITION ON DISCHARGE: Stable CODE STATUS: Code Status: Full [facility]ENIOR LIVING: SNF STAY <30 DAYS: Yes POST DISCHARGE ORDERS: ACTIVITY ORDERS: No restrictions DIET AFTER DISCHARGE: Regular DISCHARGE MEDICATIONS: Home Meds Reported Medications Furosemide (FUROSEMIDE) 40 Mg Tablet, 40 MG PO DAILY for chf, TAB 09/21/19 Amlodipine Besylate (NORVASC) 10 Mg Tablet, 10 MG PO DAILY for htn, TAB 09/21/19 Amitriptyline Hcl (AMITRIPTYLINE HCL) 10 Mg Tablet, 50 MG PO HS for antidepressant , TAB 09/20/19 GILBERTO BALLARD MD Sep 27, 2019 08:17
[2019-09-27] MEDS: amLODIPine BESYLATE 10 MG TABLET PO SCH (08:23)
[2019-09-27 11:03] VITALS: BP 113/62
--- NOTE | 2019-09-27 11:05 | PDOC ---
Renal-Progress Notes Subjective Notes Notes NO NEW COMPLAINTS History of Present Illness Hx of present illness STABLE Vitals Vitals Vital Signs Date Time Temp Pulse Resp B/P (MAP) Pulse Ox O2 Delivery O2 Flow Rate FiO2 09/27/19 11:03 97.5 68 18 113/62 (79) 95 97.5 09/27/19 07:57 Room Air Weight Weight [ ] I.O. Intake and Output Intake and Output 09/27/19 07:00 Intake Total 200 ml Output Total 3500 ml Balance -3300 ml Intake Oral 200 ml Output Urine Total 3500 ml Labs Labs Laboratory Tests Test 09/27/19 04:47 Sodium Level 143 mmol/L (136-145) Potassium Level 3.8 mmol/L (3.5-5.1) Chloride Level 108 mmol/L (98-107) Carbon Dioxide Level 25 mmol/L (21-32) Anion Gap 10 (6-14) Blood Urea Nitrogen 56 mg/dL (8-26) Creatinine 3.1 mg/dL (0.7-1.3) Estimated GFR (Cockcroft-Gault) 19.2 Glucose Level 105 mg/dL (70-99) Calcium Level 7.5 mg/dL (8.5-10.1) Review of Systems Constitutional: yes: alert Ears/Nose/Throat: Yes: no symptom reported Eyes: Yes: no symptom reported Pulmonary: Yes no symptom reported Cardiovascular: Yes no symptom reported Gastrointestional: Yes: no symptom reported Genitourinary: Yes: no symptom reported Musculoskeletal: Yes: no symptom reported Skin: Yes no symptom reported Psychiatric/Neurological: Yes: no symptom reported Endocrine: Yes: no symptom reported Physical Exam General Appearance: no apparent distress Skin: warm Respiratory: bilateral CTA Heart: S1S2 Abdomen: soft, bowel sounds present Genitourinary: bladder flat Extremities: pulses present Neurology: alert, oriented Assessment Assessment IMP [id number] DOWN TO 3.1 URINARY RETENTION PROB BPH 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
[2019-09-27] MEDS ORDERED: AMLO5TAB10 PO (11:45)
--- NOTE | 2019-09-27 14:35 | DS ---
DATE OF DISCHARGE: HOSPITAL SUMMARY: The patient came in with acute renal failure with a large distended bladder with over 3 liters of urine in his bladder. His creatinine was up to 6 and potassium slightly low and was normal GFR was around 40. Redd catheter relieved the obstruction. He had good urine output throughout the use of IV fluids and his creatinine gradually came down to meghan of 3.1 prior to discharge. Sodium normalized and his hemoglobin was 9.2 consistent with anemia of chronic disease. Redd was taken out once during the hospital stay, but failed and had to be replaced and he is on Flomax at this time and able to be discharged to rehabilitation. FINAL DIAGNOSES: 1. Acute renal failure secondary to postobstructive urinary retention. 2. 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 OPERATIONS, PROCEDURES, COMPLICATIONS: None. CONSULTATIONS: Dr. Leo. DISPOSITION: Continue with Redd in until seen by Urology in 2-4 weeks after bladder decompression and use of Flomax 0.4 mg at bedtime. He remains off Lasix and amitriptyline as contributing factors to his urinary retention and renal insufficiency. Prognosis is good for further renal recovery. GILBERTO BALLARD MD DR: MACARIO/madison JOB#: [id number] / [id number]
== END 2019-09-27 14:20 | DRG 641 ==
LOC: ER 19:31 → 2 NORTH 20:30 → 4 NORTH 09-23 19:23
PROVIDERS: ADMIT Family Medicine; ATTEND Family Medicine
DX: E87.5 Hyperkalemia (principal); N17.9 Acute kidney failure, unspecified; N18.4 Chronic kidney disease, stage 4 (severe); R33.8 Other retention of urine; D63.1 Anemia in chronic kidney disease; I12.9 Hypertensive chronic kidney disease with stage 1 through stage 4 chronic kidney disease, or unspecified chronic kidney disease; Z20.828 Contact with and (suspected) exposure to other viral communicable diseases; N32.89 Other specified disorders of bladder; Z79.899 Other long term (current) drug therapy
CPT/HCPCS: 36415; 71046; 76770; 80048; 80053; 80069; 81001; 83036; 83880; 84484; 85025; 85027; 93005; 93306; 99285; A4314; J7030; J7042; 97110-GP; 97116-GP; 97530-GO; 97530-GP; 97535-GO; G0378; U0003-CS